=== PATIENT | male | born 1950 | race Caucasian/White ===

== ENCOUNTER → 2018-12-17 | Outpatient (CLI) | payer BC | LOC: BMCIMAGING 09:20 | PROVIDERS: ATTEND Podiatrist Foot & Ankle Surgery | DX: S99.921A Unspecified injury of right foot, initial encounter (principal); W22.8XXA Striking against or struck by other objects, initial encounter ==

== ENCOUNTER → 2019-05-02 | Outpatient (CLI) | payer BC | LOC: BMCIMAGING 13:33 ==